=== PATIENT | male | born 1995 | race Caucasian/White ===

== ENCOUNTER 2018-10-12 12:43 | Emergency (ER) | payer SELFPAY ==
[~2018-10-12] VITALS: Ht 190.5 cm; Wt 113.4 kg
[2018-10-12 12:45] VITALS: BP 148/93
--- NOTE | 2018-10-12 13:33 | PHYS DOC ---
Past Medical History Past Medical History: Other Additional Past Medical Histor: Drug abuse-meth Past Surgical History: No Surgical History Alcohol Use: None Drug Use: Marijuana, Methamphetamine Adult General Chief Complaint Chief Complaint: jerking movement [facility] HPI Patient is a 23 year old male who presents via EMS with complaining of jerking movement. Patient states he was methamphetamine for 2 years and currently smoking 3 times methamphetamine a day and gets episodes of jerking movements for a long time. Patient moved to his grandmother sensory and she called 911 because of the jerking movement. Patient denies any pain, suicidal or homicidal ideation, hallucination and doesn't want workup in ER. Review of Systems Review of Systems Constitutional: Denies fever or chills [] Eyes: Denies change in visual acuity, redness, or eye pain [] HENT: Denies nasal congestion or sore throat [] Respiratory: Denies cough or shortness of breath [] Cardiovascular: No additional information not addressed in HPI [] GI: Denies abdominal pain, nausea, vomiting, bloody stools or diarrhea [] : Denies dysuria or hematuria [] Musculoskeletal: Denies back pain or joint pain [] Integument: Denies rash or skin lesions [] Neurologic: Denies headache, focal weakness or sensory changes [] Endocrine: Denies polyuria or polydipsia [] All other systems were reviewed and found to be within normal limits, except as documented in this note. Allergies Allergies Allergies Coded Allergies Type Severity Reaction Last Updated Verified No Known Drug Allergies 10/12/18 No Physical Exam Physical Exam Constitutional: Well developed, well nourished, no distress, non-toxic appearance. [] HENT: Normocephalic, atraumatic. Eyes: PERRLA, EOMI, conjunctiva normal, no discharge. [] Neck: Normal range of motion, no tenderness, supple, no stridor. [] Cardiovascular:Heart rate regular rhythm, no murmur [] Lungs & Thorax: Bilateral breath sounds clear to auscultation [] Abdomen: Bowel sounds normal, soft, no tenderness, no masses, no pulsatile masses. [] Skin: Warm, dry, no erythema, no rash. [] Back: No tenderness, no CVA tenderness. [] Extremities: No tenderness, no cyanosis, no clubbing, ROM intact, no edema. [] Neurologic: Alert and oriented X 3, no focal deficits noted. [] Psychologic: Affect anxious judgement normal, mood normal. [] Current Patient Data Vital Signs Vital Signs Date Time Temp Pulse Resp B/P (MAP) Pulse Ox O2 Delivery O2 Flow Rate FiO2 10/12/18 12:45 97.7 81 16 148/93 (111) 100 Room Air 97.7 EKG EKG [] Radiology/Procedures Radiology/Procedures [] Course & Med Decision Making Course & Med Decision Making Evaluation of patient in ER showed 23-year-old male patient with history of methamphetamine abuse brought in by EMS because of jerking movement as a chronic problem. Patient was alert and oriented without distress and did not want workup in ER. Dragon Disclaimer Dragon Disclaimer This electronic medical record was generated, in whole or in part, using a voice recognition dictation system. Departure Departure Impression: Primary Impression: Substance abuse Additional Impression: Jerking Disposition: HOME, SELF-CARE (at 1332) Condition: STABLE Referrals: UNKNOWN PCP NAME (PCP) Patient Instructions: Methamphetamine Abuse, Complications, Tremor Additional Instructions: Drink plenty of liquids Follow-up with your primary care physician in 3-5 days Return to ER if not getting better Problem Qualifiers CAITLYN CASTRO MD Oct 12, 2018 13:32
== END 2018-10-12 13:36 | disposition home or self-care (01) ==
LOC: ER 12:43
DX: F15.20 Other stimulant dependence, uncomplicated (principal); G25.3 Myoclonus
CPT/HCPCS: 99281; 99283